=== PATIENT | male | born 1970 | race Caucasian/White ===

== ENCOUNTER 2018-01-31 06:29 | Day surgery (SDC) | payer OTHER ==
[~2018-01-31] VITALS: Ht 172.7 cm; Wt 101.8 kg
[~2018-01-31 06:29] MED LIST: SODIUM CHLORIDE 0.9% 1,000 ML IV ONE
[2018-01-31] MEDS ORDERED: LIDOCAINE 2% 30 ML JELLY TP ONE (06:30)
[2018-01-31] MEDS ORDERED: ALBUTEROL SULFATE 2.5 MG/0.5 ML NEB SOLUTION NEB ONE (06:30)
[2018-01-31] MEDS ORDERED: LIDOCAINE 4% 50 ML SOLUTION TP ONE (06:30)
[2018-01-31] MEDS ORDERED: BENZOCAINE 20% 50 MCG/SPRAY 57 GM TP ONE (06:30)
[2018-01-31] MEDS ORDERED: INCRUSE INHALER PO (07:08)
[2018-01-31] MEDS ORDERED: SODIUM CHLORIDE 0.9% 1,000 ML IV ONE (07:30)
[2018-01-31] MEDS ORDERED: FentaNYL CITRATE-PF 100 MCG/2 ML VIAL ONE (07:43)
[2018-01-31] MEDS ORDERED: MIDAZOLAM HCL 2 MG/2 ML VIAL ONE (07:43)
[2018-01-31] MEDS ORDERED: MethylPREDNISolone SOD SUCC 125 MG/2 ML VIAL IVP ONE (09:15)
[2018-01-31] MEDS ORDERED: OXYGEN THERAPY IH SCH (20:00)
== END 2018-01-31 11:00 | disposition home or self-care (01) ==
LOC: SURGERY 06:29
PROVIDERS: ATTEND Internal Medicine Critical Care Medicine
DX: J38.4 Edema of larynx (principal); B37.0 Candidal stomatitis; J98.09 Other diseases of bronchus, not elsewhere classified; R59.0 Localized enlarged lymph nodes; Z87.891 Personal history of nicotine dependence; Z72.89 Other problems related to lifestyle; Z90.49 Acquired absence of other specified parts of digestive tract; Z87.01 Personal history of pneumonia (recurrent); Z98.890 Other specified postprocedural states; Z79.899 Other long term (current) drug therapy
CPT/HCPCS: 31623; 31624; 71045; 87015; 87070; 87205; 87206; 87220; 88108; 88312; J2250; J2930; J3010; J7030

== ENCOUNTER 2021-01-08 05:46 | Day surgery (SDC) | payer OTHER ==
[2021-01-06 12:14] LABS: COVID AG,FIA SOURCE NASOPHARYNGEAL
[~2021-01-08] VITALS: Ht 172.7 cm; Wt 104.0 kg
[~2021-01-08 05:46] MED LIST changes: +INCRUSE INHALER PO; +SODIUM CHLORIDE 0.9% 1,000 ML ONE
[2021-01-08 07:15] LABS: GLUCOMETER DEV NAME(LOC) SDS.; GLUCOSE,POINT OF CARE 198 MG/DL (70-110)
[2021-01-08] MEDS ORDERED: OMEP20 PO (07:15)
[2021-01-08] MEDS ORDERED: FAMO20 PO (07:15)
[2021-01-08] MEDS ORDERED: METF-960 PO (07:15)
[2021-01-08] MEDS ORDERED: MONT-35 PO (07:15)
[2021-01-08] MEDS ORDERED: PRED-409 PO (07:15)
[2021-01-08] MEDS ORDERED: CALC-1038 PO (07:15)
[2021-01-08] MEDS ORDERED: FentaNYL CITRATE PF 100 MCG/2 ML VIAL ONE (07:31)
[2021-01-08] MEDS ORDERED: MIDAZOLAM HCL 5 MG/ML VIAL ONE (07:31)
[2021-01-08] MEDS ORDERED: MethylPREDNISolone SOD SUCC 125 MG/2 ML VIAL IVP ONE (09:00)
[2021-01-08] MEDS ORDERED: MethylPREDNISolone SOD SUCC 125 MG/2 ML VIAL ONE (09:06)
[2021-01-08] MEDS ORDERED: OXYGEN THERAPY IH SCH (20:00)
== END 2021-01-08 10:25 | disposition home or self-care (01) ==
LOC: SURGERY 05:46
PROVIDERS: ATTEND Internal Medicine Critical Care Medicine
DX: J38.4 Edema of larynx (principal); B37.0 Candidal stomatitis; Z98.890 Other specified postprocedural states; E11.9 Type 2 diabetes mellitus without complications; Z79.899 Other long term (current) drug therapy
CPT/HCPCS: 31623; 31624; 71045; 82962; 87015; 87070; 87101; 87205; 87206; 87220; 87426; 88108; 88184; 88185; 88312; C9803; J2250; J2930; J3010; J7030